=== PATIENT | female | born 1975 | race Caucasian/White ===

== ENCOUNTER → 2016-06-10 | Outpatient (CLI) | payer MEDICARE | LOC: KOH-I 11:35 | DX: M54.16 Radiculopathy, lumbar region (principal); M51.17 Intervertebral disc disorders with radiculopathy, lumbosacral region; M47.27 Other spondylosis with radiculopathy, lumbosacral region; M99.73 Connective tissue and disc stenosis of intervertebral foramina of lumbar region; M99.74 Connective tissue and disc stenosis of intervertebral foramina of sacral region | CPT/HCPCS: 72148 ==

== ENCOUNTER 2016-06-14 16:41 | Emergency (ER) | payer MEDICARE | END 2016-06-14 17:40 | disposition home or self-care (01) | LOC: ER1 16:41 | DX: N39.0 Urinary tract infection, site not specified (principal); F17.200 Nicotine dependence, unspecified, uncomplicated; Z88.1 Allergy status to other antibiotic agents; Z88.2 Allergy status to sulfonamides | CPT/HCPCS: 81001; 87077; 87086; 87186; 99283 ==